=== PATIENT | female | born 1945 | race Caucasian/White ===

== ENCOUNTER 2023-09-18 07:58 | Day surgery (SDC) | payer MEDICARE, SELFPAY ==
[2022-02-01 09:02] VITALS: BP 124/48; BMI 27.1
[2023-09-14 14:12] VITALS: BMI 26.9
--- NOTE | 2023-09-15 07:59 | MHC.SHP ---
Pre-Procedural Eval Section A Date of Service: 09/15/23 The patient is an INPATIENT: No Changes since office visit: No Cold of Flu in the past 2 weeks, No New Medical Problems, No Changes in Medication and No Patient answered all questions The History & Physical has been completed within 30 days and I have reviewed it.: Yes Section B Chief Complaint: Age-related nuclear cataract, left eye Allergies: Allergies Allergy/AdvReac Type Severity Reaction Status Date / Time Penicillins Allergy Unknown Verified 09/14/23 14:04 Plan Diagnosis/Plan: Unchanged I have reviewed the history and physical and performed a pertinent physical examination on my patient. No changes have occurred unless specified. Time Spent With Patient Time: Total time managing care of this patient today ____ minutes.
--- NOTE | 2023-09-18 09:10 | HO.ANESPROP2 ---
FORMERLY [facility] Past Medical History Medical History (Updated 09/14/23 @ 12:29 by Alicia Otero, PABLITO) Cataract Osteoporosis Constipation Hx of syncope Palpitations Left bundle branch block (LBBB) Elevated cholesterol CAD (coronary artery disease) HTN (hypertension) Family History Family history of problems with anesthesia: No Surgical History Surgical History (Updated 09/14/23 @ 14:05 by Alicia Otero, RN) Hx of colonoscopy History of total abdominal hysterectomy and bilateral salpingo-oophorectomy Hx of hemorrhoidectomy History of Problems with Anesthesia: No Social History Social History (Updated 09/14/23 @ 14:04 by Alicia Otero, RN) Household Members: Spouse Housing: House Are you a primary healthcare network consultant to a significant other at home: Yes (-daughter and neighbor to assist) Do you presently have visiting nurse or other home services: No Patient Tobacco Use Status: Former Tobacco user Quit Date: Tobacco use type: Cigarette Use of substances other than those prescribed or required for medical reasons: No Have you been hit, kicked, punched, or otherwise hurt by someone within the past year? If so, by whom?: No Are you DNR?: No Advance Directives: No Advance Directives Information Provided: Yes Advance Directives on File: No Recently lost weight without trying: No Nutrition Risks: Surgical patient >75years Meds Allergies Allergy/AdvReac Type Severity Reaction Status Date / Time Penicillins Allergy Unknown Verified 09/14/23 14:04 Active Medications: Current Medications Cyclopentolate HCl (Cyclopentolate 1 % Ophth Breann 2 Ml Drpbtl) 1 drop EYE-LEFT Q5M DARION Stop: 09/18/23 09:11 Ketorolac Tromethamine (Ketorolac Tromethamine 0.5% Op 5 Ml Drops) 1 drop EYE-LEFT Q5M DARION Stop: 09/18/23 09:11 Phenylephrine HCl (Phenylephrine Hcl 2.5% Oph Breann 2 Ml Bottle) 1 drop EYE-LEFT Q5M DARION Stop: 09/18/23 09:11 Povidone Iodine (Povidone Iodine 5 % Ophth Soln 30 Ml Bottle) 1 appl EYE-LEFT PREOP PRN PRN Reason: Pre-Op Surgical Implant Prophy Tropicamide (Tropicamide 1 % Ophth Breann 3 Ml Btl) 1 drop EYE-LEFT Q5M DARION Stop: 09/18/23 09:11 Home Medications Medication Instructions Recorded Confirmed Last Taken Type amlodipine 5 mg tablet 5 mg PO DAILY 09/14/23 09/14/23 Unknown History aspirin 81 mg chewable tablet 81 mg PO DAILY 09/14/23 09/14/23 Unknown History atorvastatin 80 mg tablet 80 mg PO DAILY 09/14/23 09/14/23 Unknown History bisacodyl 5 mg tablet,delayed 10 mg PO BID 09/14/23 09/14/23 Unknown History release (Dulcolax (bisacodyl)) carvedilol 25 mg tablet 25 mg PO BID 09/14/23 09/14/23 Unknown History clopidogrel 75 mg tablet 75 mg PO DAILY 09/14/23 09/14/23 Unknown History furosemide 20 mg tablet 20 mg PO DAILY 09/14/23 09/14/23 Unknown History multivitamin 1 tab PO DAILY 09/14/23 09/14/23 Unknown History valsartan 320 mg tablet 320 mg PO DAILY 09/14/23 09/14/23 Unknown History Exam Exam Date and Time: September 18, 2023 0910 Height,Weight and Vital Signs: Height 5 ft 2.2 in Weight 67.132 kg Airway Mallampati Class: II TM Dist: >3cm Neck ROM: Full Assessment and Plan Assessment Anesthesia Assessment: Anesthesia Plan Discussed and Chart Reviewed Final Anesthetic Review Family History of Problems with Anesthesia: No History of Problems with Anesthesia: No NPO: Yes ASA Class: III Final Preanesthetic Review: No Changes in Pt Med Stat, Meds/Allgs Chart Reviewed, Consent Obtained/Reviewed and Anes Risks/Benef Reviewed Patient Risk: Intermediate Procedure Risk: Low Anesthetic Plan Anesthetic Plan: MAC: Disposition: Standard PACU
[2023-09-18 09:21] VITALS: PULSE 49; RESP 18; TEMP 36.7; O2SAT 96
[2023-09-18 09:38] VITALS: BP 159/58
[2023-09-18] MEDS: Tetracaine HCl/PF 0.5% Oph Sol 4 ML DROPS 1 DROP EYE-LEFT (09:59)
[2023-09-18] MEDS: Phenylephrine HCL 2.5% Oph SoL 2 ML BOTTLE 1 DROP EYE-LEFT ×3 (09:59→10:05)
[2023-09-18] MEDS: Ketorolac Tromethamine 0.5% Op 5 ML DROPS 1 DROP EYE-LEFT ×3 (09:59→10:05)
[2023-09-18] MEDS: Cyclopentolate 1 % Ophth Sol 2 ML DRPBTL 1 DROP EYE-LEFT ×3 (09:59→10:05)
[2023-09-18] MEDS: Tropicamide 1 % Ophth Sol 3 ML BTL 1 DROP EYE-LEFT ×3 (10:02→10:05)
[2023-09-18] MEDS: Lactated Ringers 500 ML 50 ML IV (10:06)
--- NOTE | 2023-09-18 10:11 | HO.PNOPHT ---
Ophthalmology Procedure Procedure Date of Service: 09/18/23 Ophthalmology Viscoelastic: Healon Duet Dual Pack Pro Ophthalmology Lenses: TECGINI [id number] (21) Procedure Notes: PREOPERATIVE DIAGNOSIS: Decreased visual acuity left eye secondary to cataract POSTOPERATIVE DIAGNOSIS: Same PROCEDURE: Left cataract extraction with intraocular lens insertion SURGEON: Alfredo Braun M.D. ANESTHESIA: Topical/MAC ESTIMATED BLOOD LOSS: None COMPLICATIONS: None After obtaining informed consent, the patient was brought to the operation room suite and placed in the supine position. After adequate sedation per anesthesia, topical drops of Tetracaine were given to the left eye. The eye was then prepped and draped in the usual sterile fashion. The operating room microscope was then positioned over the operative eye and a lid speculum placed. A paracentesis was created. Viscoelastic was then instilled into the anterior chamber. A three plane incision was then created temporally, utilizing a 2.85 mm keratome. Capsulotomy forceps were then utilized to create a circular tear capsulotomy. Hydrodissection and hydrodelineation were carried out until adequate mobilization of the nucleus occurred. Phacoemulsification was then utilized to remove the dense central nucleus followed by removal of the cortical material utilizing the automated aspiration irrigation unit. Viscoat elastic was instilled into the posterior capsular bag followed by placement of a posterior chamber intraocular lens without difficulty. The residual Viscoat elastic was then removed utilizing the automated IA machine. The wound was check and found to be watertight. The patient tolerated the procedure well and the lid speculum was removed. Intracameral injection of Vigamox 0.1 mL followed by a subtenon injection of Kenalog-40 0.2 mL were administered. The patient will be seen in the a.m.
[2023-09-18 10:36] VITALS: BP 147/47; PULSE 48; RESP 16; TEMP 36.6; O2SAT 95
== END 2023-09-18 10:49 | disposition home or self-care (01) ==
PROVIDERS: PCP Nurse Practitioner Family; Visit Provider Ophthalmology
PROC: (CPT 66985; principal; 2023-09-18 10:30)
DX: H25.12 Age-related nuclear cataract, left eye (principal); H52.4 Presbyopia; H18.413 Arcus senilis, bilateral; H11.153 Pinguecula, bilateral; I10 Essential (primary) hypertension; I25.2 Old myocardial infarction; I44.7 Left bundle-branch block, unspecified; E78.00 Pure hypercholesterolemia, unspecified; M81.0 Age-related osteoporosis without current pathological fracture; Z79.82 Long term (current) use of aspirin; Z79.899 Other long term (current) drug therapy; Z88.0 Allergy status to penicillin; Z87.891 Personal history of nicotine dependence
CPT/HCPCS: 66984; J2250; J3010; J3301; V2632

== ENCOUNTER 2023-09-25 07:50 | Day surgery (SDC) | payer MEDICARE, SELFPAY ==
[2022-02-01 09:02] VITALS: BP 124/48; BMI 27.1
[2023-09-14 14:16] VITALS: BMI 27.2
--- NOTE | 2023-09-22 08:31 | MHC.SHP ---
Pre-Procedural Eval Section A Date of Service: 09/22/23 The patient is an INPATIENT: No Changes since office visit: No Cold of Flu in the past 2 weeks, No New Medical Problems, No Changes in Medication and No Patient answered all questions The History & Physical has been completed within 30 days and I have reviewed it.: Yes Section B Chief Complaint: Age-related nuclear cataract, right eye Allergies: Allergies Allergy/AdvReac Type Severity Reaction Status Date / Time Penicillins Allergy Unknown Verified 09/14/23 14:04 Plan Diagnosis/Plan: Unchanged I have reviewed the history and physical and performed a pertinent physical examination on my patient. No changes have occurred unless specified. Time Spent With Patient Time: Total time managing care of this patient today ____ minutes.
--- NOTE | 2023-09-22 09:38 | P.CONAN_ITS ---
Documented by User: Lynn Keith NP 09/22/23 09:38 HPI - Anesthesia Eval Consult details Narrative: 78yo F for Right Cataract Extraction IOL Insertion Medically cleared Left eye 09/18/23: Fent 48, Midaz 0.5 PMFSH Past Medical History Medical History Cataract Osteoporosis Constipation Hx of syncope Palpitations Left bundle branch block (LBBB) Elevated cholesterol CAD (coronary artery disease) HTN (hypertension) Family History Family history of problems with anesthesia: No Surgical History Surgical History Hx of colonoscopy History of total abdominal hysterectomy and bilateral salpingo-oophorectomy Hx of hemorrhoidectomy History of Problems with Anesthesia: No Social History Social History Household Members: Spouse Housing: House Are you a primary ambulatory care nurse to a significant other at home: Yes (- daughter and neighbor to assist) Do you presently have visiting nurse or other home services: No Patient Tobacco Use Status: Former Tobacco user Quit Date: Tobacco use type: Cigarette Use of substances other than those prescribed or required for medical reasons: No Have you been hit, kicked, punched, or otherwise hurt by someone within the past year? If so, by whom?: No Are you DNR?: No Advance Directives: No Advance Directives Information Provided: Yes Advance Directives on File: No Recently lost weight without trying: No Nutrition Risks: Surgical patient >75years Meds Allergies Allergy/AdvReac Type Severity Reaction Status Date / Time Penicillins Allergy Unknown Verified 09/14/23 14:04 Home Medications Medication Instructions Recorded Confirmed Last Taken Type amlodipine 5 mg tablet 5 mg PO DAILY 09/14/23 09/14/23 09/25/23 History aspirin 81 mg chewable tablet 81 mg PO DAILY 09/14/23 09/14/23 09/24/23 History atorvastatin 80 mg tablet 80 mg PO DAILY 09/14/23 09/14/23 Unknown History bisacodyl 5 mg tablet,delayed 10 mg PO BID 09/14/23 09/14/23 Unknown History release (Dulcolax (bisacodyl)) carvedilol 25 mg tablet 25 mg PO BID 09/14/23 09/14/2309/25/23 History clopidogrel 75 mg tablet 75 mg PO DAILY 09/14/23 09/14/23 09/24/23 History furosemide 20 mg tablet 20 mg PO DAILY 09/14/23 09/14/23 Unknown History multivitamin 1 tab PO DAILY 09/14/23 09/14/23 Unknown History valsartan 320 mg tablet 320 mg PO DAILY 09/14/23 09/14/23 Unknown History Exam Exam Date and Time: September 22, 2023 0938 Height,Weight and Vital Signs: Height 5 ft 2.2 in Weight 68 kg Assessment and Plan Assessment Anesthesia Assessment: Chart Reviewed Final Anesthetic Review Family History of Problems with Anesthesia: No History of Problems with Anesthesia: No Documented by User: Raisa Shin MD 09/25/23 09:05 [facility] Past Medical History Medical History Cataract Osteoporosis Constipation Hx of syncope Palpitations Left bundle branch block (LBBB) Elevated cholesterol CAD (coronary artery disease) HTN (hypertension) Surgical History Surgical History Hx of colonoscopy History of total abdominal hysterectomy and bilateral salpingo-oophorectomy Hx of hemorrhoidectomy Social History Social History Household Members: Spouse Housing: House Are you a primary ambulatory care nurse to a significant other at home: Yes (- daughter and neighbor to assist) Do you presently have visiting nurse or other home services: No Patient Tobacco Use Status: Former Tobacco user Quit Date: Tobacco use type: Cigarette Use of substances other than those prescribed or required for medical reasons: No Have you been hit, kicked, punched, or otherwise hurt by someone within the past year? If so, by whom?: No Are you DNR?: No Advance Directives: No Advance Directives Information Provided: Yes Advance Directives on File: No Recently lost weight without trying: No Nutrition Risks: Surgical patient >75years Meds Allergies Allergy/AdvReac Type Severity Reaction Status Date / Time Penicillins Allergy Unknown Verified 09/14/23 14:04 Home Medications Medication Instructions Recorded Confirmed Last Taken Type amlodipine 5 mg tablet 5 mg PO DAILY 09/14/23 09/14/23 09/25/23 History aspirin 81 mg chewable tablet 81 mg PO DAILY 09/14/23 09/14/23 09/24/23 History atorvastatin 80 mg tablet 80 mg PO DAILY 09/14/23 09/14/23 Unknown History bisacodyl 5 mg tablet,delayed 10 mg PO BID 09/14/23 09/14/23 Unknown History release (Dulcolax (bisacodyl)) carvedilol 25 mg tablet 25 mg PO BID 09/14/23 09/14/23 09/25/23 History clopidogrel 75 mg tablet 75 mg PO DAILY 09/14/23 09/14/23 09/24/23 History furosemide 20 mg tablet 20 mg PO DAILY 09/14/23 09/14/23 Unknown History multivitamin 1 tab PO DAILY 09/14/23 09/14/23 Unknown History valsartan 320 mg tablet 320 mg PO DAILY 09/14/23 09/14/23 Unknown History Exam Airway Mallampati Class: II TM Dist: >3cm Neck ROM: Full Denture: Upper and Lower Loose/Missing/Broken Teeth: Yes, Upper and Lower Heart: RRR Lungs: CTA Assessment and Plan Assessment Anesthesia Assessment: Anesthesia Plan Discussed Final Anesthetic Review NPO: Yes ASA Class: III Final Preanesthetic Review: Meds/Allgs Chart Reviewed, Consent Obtained/Reviewed and Anes Risks/Benef Reviewed Patient Risk: Intermediate Procedure Risk: Low Anesthetic Plan Anesthetic Plan: MAC: Disposition: Standard PACU
[2023-09-25 08:43] VITALS: BP 157/42; PULSE 48; RESP 18; TEMP 36.1; O2SAT 96
[2023-09-25] MEDS: Lactated Ringers 500 ML 50 ML IV (08:45)
[2023-09-25] MEDS: Ketorolac Tromethamine 0.5% Op 5 ML DROPS 1 DROP EYE-RIGHT ×3 (08:45→08:47)
[2023-09-25] MEDS: Tropicamide 1 % Ophth Sol 3 ML BTL 1 DROP EYE-RIGHT ×3 (08:45→08:47)
[2023-09-25] MEDS: Cyclopentolate 1 % Ophth Sol 2 ML DRPBTL 1 DROP EYE-RIGHT ×3 (08:45→08:47)
[2023-09-25] MEDS: Tetracaine HCl/PF 0.5% Oph Sol 4 ML DROPS 1 DROP EYE-RIGHT (08:45)
[2023-09-25] MEDS: Phenylephrine HCL 2.5% Oph SoL 2 ML BOTTLE 1 DROP EYE-RIGHT ×3 (08:46→08:47)
--- NOTE | 2023-09-25 10:00 | HO.PNOPHT ---
Ophthalmology Procedure Procedure Date of Service: 09/25/23 Ophthalmology Viscoelastic: Kavya Irelandt Dual Pack Pro Ophthalmology Lenses: TECGINI [id number] (21) Procedure Notes: PREOPERATIVE DIAGNOSIS: Decreased visual acuity right eye secondary to cataract POSTOPERATIVE DIAGNOSIS: Same PROCEDURE: Right cataract extraction with intraocular lens insertion SURGEON: Alfredo Braun M.D. ANESTHESIA: Topical/MAC ESTIMATED BLOOD LOSS: None COMPLICATIONS: None After obtaining informed consent, the patient was brought to the operating room suite and placed in the supine position. After adequate sedation per anesthesia, topical drops of Tetracaine were given to the right eye. The eye was then prepped and draped in the usual sterile fashion. The operating room microscope was then positioned over the operative eye and a lid speculum placed. A paracentesis was created. Viscoelastic was then instilled into the anterior chamber. A three plane incision was then created temporally, utilizing a 2.85 mm keratome. Capsulotomy forceps were then utilized to create a circular tear capsulotomy. Hydrodissection and hydrodelineation were carried out until adequate mobilization of the nucleus occurred. Phacoemulsification was then utilized to remove the dense central nucleus followed by removal of the cortical material utilizing the automated aspiration irrigation unit. Viscoelastic was instilled into the posterior capsular bag followed by placement of a posterior chamber intraocular lens without difficulty. The residual Viscoelastic was then removed utilizing the automated IA machine. The wound was checked and found to be watertight. The patient tolerated the procedure well and the lid speculum was removed. Intracameral injection of Vigamox 0.1 mL followed by a subtenon injection of Kenalog-40 0.2 mL were administered. The patient will be seen in the a.m.
[2023-09-25 10:30] VITALS: BP 145/78; PULSE 54; RESP 18; TEMP 36.1; O2SAT 96
== END 2023-09-25 10:45 | disposition home or self-care (01) ==
PROVIDERS: PCP Nurse Practitioner Family; Visit Provider Ophthalmology
PROC: (CPT 66985; principal; 2023-09-25 10:00)
DX: H25.11 Age-related nuclear cataract, right eye (principal); H52.4 Presbyopia; H18.413 Arcus senilis, bilateral; H11.153 Pinguecula, bilateral; I44.7 Left bundle-branch block, unspecified; I25.2 Old myocardial infarction; I25.10 Atherosclerotic heart disease of native coronary artery without angina pectoris; I11.0 Hypertensive heart disease with heart failure; E78.00 Pure hypercholesterolemia, unspecified; M81.0 Age-related osteoporosis without current pathological fracture; Z79.82 Long term (current) use of aspirin; Z79.899 Other long term (current) drug therapy; Z88.0 Allergy status to penicillin; Z87.891 Personal history of nicotine dependence
CPT/HCPCS: 66984; J3010; J3301; V2632

== ENCOUNTER 2025-10-19 10:38 | Emergency (ER) | payer MEDICARE, SELFPAY ==
[2022-02-01 09:02] VITALS: BP 124/48; BMI 27.1
--- NOTE | ~2025-10-19 | CT_ITS ---
CLINICAL HISTORY: Fall CT cervical spine without contrast Comparison: None provided Findings: Vertebral alignment is within normal limits. Moderate degenerative changes of cervical spine. No acute fractures or dislocations. Visualized intracranial contents are unremarkable. Soft tissues of the neck are normal. Partially visualized area of ground-glass opacity in the medial left lung apex. No apical pneumothorax. IMPRESSION: No acute fracture. Partially visualized ground-glass opacity in the medial left lung apex which could represent area of infection, mass, pulmonary contusion. Consider follow-up with chest CT for further evaluation. This document has been electronically signed by: Angel Talbot MD on 10/19/2025 16:13:36
--- NOTE | ~2025-10-19 | CT_ITS ---
CLINICAL HISTORY: Fall CT head without contrast Comparison: None provided Findings: No intra-axial mass, midline shift, hydrocephalus, or acute hemorrhage. Mild cerebral atrophy. Low attenuation in the periventricular white matter consistent with chronic small-vessel ischemic gliosis. There is no sinus or mastoid fluid. The orbits are unremarkable. Right forehead scalp swelling. There is no acute fracture. IMPRESSION: 1. No acute intracranial findings. This document has been electronically signed by: Angel Talbot MD on 10/19/2025 16:16:12
--- NOTE | ~2025-10-19 | CT_ITS ---
CLINICAL HISTORY: Trauma R eye CT maxillofacial without contrast Comparison: None provided Findings: No acute fractures. Temporomandibular joints are intact. Paranasal sinuses and mastoid air cells clear. Unremarkable orbital contents. Globes are symmetric. Previous bilateral lens surgery. Visualized intracranial contents are within normal limits. No foreign bodies. IMPRESSION: Unremarkable maxillofacial CT. This document has been electronically signed by: Angel Talbot MD on 10/19/2025 16:20:25
[2025-10-19 10:45] VITALS: BP 166/72; PULSE 52; RESP 16; TEMP 36.1; O2SAT 96; BMI 27.7
--- OUTSIDE RECORDS SUMMARY | 2025-10-19 11:30 | XMS_ITS | Encounter Summary ---
Author Organization [facility], Address [address] [place] [address] Phone Care Team Providers Care Manager Nuclear Name Role Phone Chiara Rodriguez MD Primary Care Provider [phone] Encounter Details Date Type Department Care Team (Late st Contact Info) Description 01/24/2025 Documentation Only [facility], [address] [place] [address] Celestina Ruiz [address] [place] [phone] Social History Tobacco Use Types Packs/Day Years Used Date Smoking Tobacco: Former Cigarettes Smokeless Tobacco: Never Comments Unknown Sex and Gender Information Value Date Recorded Sex Assigned at Not on file Legal Sex Female 1:58 PM EST Gender Identity Not on file Sexual Orientation Not on file documented as of this encounter Plan of Treatment Not on file documented as of this encounter Visit Diagnoses Not on filedocumented in this encounter Care Teams Manager Nuclear Relationship Specialty Start Date End Date Chiara Rodriguez MD [address] [place] [address] [phone] PCP - General Director Of Student Life 12/05/24 documented as of this encounter
--- OUTSIDE RECORDS SUMMARY | 2025-10-19 11:30 | XMS_ITS | Encounter Summary ---
Author Organization [facility], Address [address] [place] [address] Phone Care Team Providers Care Human Services Professional Name Role Phone Chiara Rodriguez MD Primary Care Provider [phone] Encounter Details Date Type Department Care Team (Late st Contact Info) Description 12/20/2024 Documentation Only [facility], [address] [place] [address] Laura GuerinReynolds, [place] [address] [place] [address] Social History Tobacco Use Types Packs/Day Years Used Date Smoking Tobacco: Never Assessed Comments Unknown Sex and Gender Information Value Date Recorded Sex Assigned at Not on file Legal Sex Female 1:58 PM EST Gender Identity Not on file Sexual Orientation Not on file documented as of this encounter Plan of Treatment Not on file documented as of this encounter Visit Diagnoses Not on filedocumented in this encounter Care Teams Human Services Professional Relationship Specialty Start Date End Date Chiara Rodriguez MD [address] [place] [address] [phone] PCP - General Aircraft Inspector 12/05/24 documented as of this encounter
--- OUTSIDE RECORDS SUMMARY | 2025-10-19 11:30 | XMS_ITS | Patient Health Record ---
Author Organization [facility] Address [address] [place] [address] Care Team Providers Care Ocean Import Representative Name Role Phone Matt AYALA Hallie Primary Care Provider Unavailab winnie SalgueroRadhae Unavailable [phone] Allergies Allergen (clinical drug ingredient) Drug/Non Drug Allergy documented on EMR Reaction Allergy Type Onset Date Status Information temporarily unavailable Penicillin Unknown Drug Allergy Active Reason For Referral No Information Medications Medication SIG (Take, Route, Frequency, Duration) Notes Start Date End Date Status hydroCHLOROthiazide Active Furosemide Active Pravastatin Sodium A ctive dilTIAZem HCl ER Coated Beads Active Losartan Potassium A ctive Problems Problem Type SNOMED Code ICD Code Onset Dates Problem Status W/U Status Risk Notes Problem Information temporarily unavailable Arthralgia (719.40) Active confirmed Problem Information temporarily unavailable Arthritis - Degenerative (719.97) Active confirmed Problem Information temporarily unavailable Hammer toe (735.4) Active confirmed Problem Information temporarily unavailable 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 Problem Information temporarily unavailable Ingrowing Nail (703.0) Active confirmed Plan Of Treatment Pending Test Test Name Order Date [id number] Plate 06/22/2015 Insurance Providers Payer Name Payer Address Payer Phone Subscriber Number Group Number Insured Name Patient Relationship to Insured Coverage Start Date Coverage End Date Medicare [facility] [address] [place] [address] [phone] [id number] Symone Qureshi Self - patient is the insured [place] [address] [place] [phone] [phone] [id number] Symone Qureshi Self - patient is the insured Medical (General) History Medical History History ICD Code High blood pressure Osteoporosis
--- OUTSIDE RECORDS SUMMARY | 2025-10-19 11:30 | XMS_ITS | Encounter Summary ---
Author Organization [facility], Address [address] [place] [address] Phone Care Team Providers Care Court Abstractor Name Role Phone Chiara Rodriguez MD Primary Care Provider [phone] Encounter Details Date Type Department Care Team (Late st Contact Info) Description 01/24/2025 Documentation Only [facility], [address] [place] [address] Celestina Ruiz [address] [place] [phone] Social History Tobacco Use Types Packs/Day [...] on filedocumented in this encounter Care Teams Court Abstractor Relationship Specialty Start Date End Date Chiara Rodriguez MD [address] [place] [address] [phone] PCP - General Shrimping Boat Captain 12/05/24 documented as of this encounter
--- OUTSIDE RECORDS SUMMARY | 2025-10-19 11:30 | XMS_ITS | Clinical Summary ---
Author Organization [facility], Address [address] [place] [address] Phone Care Team Providers Care Charging Crane Operator Name Role Phone Chiara Rodriguez MD Primary Care Provider [phone] Allergies Active Allergy Reactions Criticality Noted Date Comments Penicillins 01/24/2025 Medications amLODIPine (NORVASC) 5 MG tablet Take 5 mg by mouth 1 (one) time each day Active aspirin (ST DEREK) 81 MG EC tablet Take 81 mg by mouth 1 (one) time each day Active atorvastatin (LIPITOR) 80 MG tablet Take 80 mg by mouth 1 (one) time each day Active calcium carbonate EX (TUMS EX) 750 MG chewable tablet Chew 750 mg 1 (one) time each day Active carvedilol (COREG) 25 MG tablet Take 25 mg by mouth in the morning and 25 mg in the evening. Take with meals. Active clopidogrel (PLAVIX) 75 MG tablet Take 75 mg by mouth 1 (one) time each day Active furosemide (LASIX) 20 MG tablet Take 20 mg by mouth 1 (one) time each day Active losartan-hydroC HLOROthiazide (HYZAAR) 100-25 MG per tablet Take 1 tablet by mouth 1 (one) time each day Active Multiple Vitamin (multivitamin) capsule Take 1 capsule by mouth 1 (one) time each day Active Active Problems Problem Noted Date Diagnosed Date Chronic kidney disease, stage 2 (mild) 5 Prediabetes Hypertension Hypercholesterolemia Immunizations Immunization Administration Dates Next Due Influenza Whole 09/05/2020, 8,01/06/2010,10/05/2008 ,09/20/2007 Pfizer SARS-COV-2 08/23/2021,01/20/2021,12/30/19 21 Pneumococcal Conjugate 13-Valent 04/08/2015 Pneumococcal Polysaccharide 02/02/2009 Shingrix 08/11/2024 Td, Unspecified 04/20/2006 Zoster 02/05/2014 Family History Medical History Relation Comments Heart attack Brother Heart attack Father COPD Mother Lung cancer Sister Relation Status Comments Brother Father Mother Sister Social History Tobacco Use Types Packs/Day Years Used Date Smoking Tobacco: Former Cigarettes Smokeless Tobacco: Never Comments Unknown Sex and Gender Information Value Date Recorded Sex Assigned at Not on file Legal Sex Female 1:58 PM EST Gender Identity Not on file Sexual Orientation Not on file Plan of Treatment Health Maintenance Due Date Last Done Comments Influenza Vaccine (#1) 2025 0, 08/20/2018, 01/06/2010, Additional history exists Pneumococcal Vaccine: 50+ Years Completed 04/08/2015, 02/02/2009 Hepatitis B Vaccine Aged Out No longe r eligible based on patient's age to complete this topic Insurance [facility] Care Teams Charging Crane Operator Relationship Specialty Start Date End Date Chiara Rodriguez MD [address] [place] [id number] PCP - General Career Resource Specialist 12/05/24
--- OUTSIDE RECORDS SUMMARY | 2025-10-19 11:30 | XMS_ITS | Encounter Summary ---
Author Organization [facility], Address [address] [place] [address] Phone Care Team Providers Care Break And Load Operator Name Role Phone Chiara Rodriguez MD Primary Care Provider [phone] Encounter Details Date Type Department Care Team (Late st Contact Info) Description 01/24/2025 Documentation Only [facility], [address] [place] [address] Celestina Ruiz [address] [place] [phone] Social History Tobacco Use Types Packs/Day [...] on filedocumented in this encounter Care Teams Break And Load Operator Relationship Specialty Start Date End Date Chiara Rodriguez MD [address] [place] [address] [phone] PCP - General Steel Molder 12/05/24 documented as of this encounter
--- OUTSIDE RECORDS SUMMARY | 2025-10-19 11:30 | XMS_ITS | Encounter Summary ---
Author Organization [facility], Address [address] [place] [address] Phone Care Team Providers Care Catering Sales Manager Name Role Phone Chiara Rodriguez MD Primary Care Provider [phone] Encounter Details Date Type Department Care Team (Late st Contact Info) Description 12/05/2024 Documentation Only [facility], [address] [place] [address] [place] [address] [place] [address] Social History Tobacco Use Types [...] on filedocumented in this encounter Care Teams Catering Sales Manager Relationship Specialty Start Date End Date Chiara Rodriguez MD [address] [place] [id number] PCP - General Button Attaching Machine Operator 12/05/24 documented as of this encounter
--- OUTSIDE RECORDS SUMMARY | 2025-10-19 11:30 | XMS_ITS | Encounter Summary ---
Author Organization [facility], Address [address] [place] [address] Phone Care Team Providers Care Radio Installer Automobile Name Role Phone Chiara Rodriguez MD Primary Care Provider [phone] Encounter Details Date Type Department Care Team (Late st Contact Info) Description 01/24/2025 Documentation Only [facility], [address] [place] [address] Celestina Ruiz [address] [place] [phone] Social History Tobacco Use Types Packs/Day [...] on filedocumented in this encounter Care Teams Radio Installer Automobile Relationship Specialty Start Date End Date Chiara Rodriguez MD [address] [place] [address] [phone] PCP - General Hcc Coders 12/05/24 documented as of this encounter
--- OUTSIDE RECORDS SUMMARY | 2025-10-19 11:30 | XMS_ITS | Encounter Summary ---
Author Organization [facility], Address [address] [place] [address] Phone Care Team Providers Care Pie Chef Name Role Phone Chiara Rodriguez MD Primary Care Provider [phone] Encounter Details Date Type Department Care Team (Late st Contact Info) Description 01/24/2025 Documentation Only [facility], [address] [place] [address] Celestina Ruiz [address] [place] [phone] Social History Tobacco Use Types Packs/Day [...] on filedocumented in this encounter Care Teams Pie Chef Relationship Specialty Start Date End Date Chiara Rodriguez MD [address] [place] [address] [phone] PCP - General Kennel Helper 12/05/24 documented as of this encounter
--- OUTSIDE RECORDS SUMMARY | 2025-10-19 11:30 | XMS_ITS | Encounter Summary ---
Author Organization [facility], Address [address] [place] [address] Phone Care Team Providers Care Safety Officer Name Role Phone Chiara Rodriguez MD Primary Care Provider Encounter Details Date Type Department Care Team (Late st Contact Info) Description 01/24/2025 Documentation Only [facility], [address] [place] [address] Celestina Ruiz [address] [place] [phone] Social History Tobacco Use Types Packs/Day [...] on filedocumented in this encounter Care Teams Safety Officer Relationship Specialty Start Date End Date Chiara Rodriguez MD [address] [place] [address] [phone] PCP - General Mixing Machine Tender Cork Rod 12/05/24 documented as of this encounter
[2025-10-19 12:25] LABS: MANUAL DIFF FLAG NO
[2025-10-19 12:26] LABS: Hematocrit 35.2 % (37.0-47.0); Hemoglobin 12.4 g/dl (12.0-16.0); Imm Gran Abs Auto 0.02 X10*3/uL (0.00-0.03); Imm Gran Pct Auto 0.3 % (0.0-0.4); Lymphocytes Absolute Auto 1.4 X10*3/uL (1.2-4.9); Mean Corpuscular HGB Conc 35.2 g/dl (31.0-35.0); Mean Corpuscular Hemoglobin 32.0 pg (27.0-33.0); Mean Corpuscular Volume 90.7 fL (80.0-98.0); NRBC Abs Auto 0.000 X10*3/uL (0.0-0.012); NRBC Pct Auto 0.0 /100WBC (0.0-0.2); Platelet Count 205 X10*3/uL (160-400); Red Blood Count 3.88 X10*6/uL (4.20-5.50); White Blood Count 5.9 X10*3/uL (4.8-10.8)
[2025-10-19 12:33] LABS: INTERNATIONAL NORM RATIO 0.9 (0.9-1.1); Prothrombin Time 11.4 SEC (11.2-13.5)
[2025-10-19 12:51] LABS: Anion Gap 13 (12-20); Blood Urea Nitrogen 15 mg/dL (9-16); Calcium 9.7 mg/dL (8.4-10.2); Carbon Dioxide 29 mmol/L (22-29); Chloride 105 mmol/L (96-108); Creatinine Clr Calc Pharmacy 46.2; Estimated Glomerular Filt Rate > 60; Potassium 3.1 mmol/L (3.3-5.1); Sodium 144 mmol/L (135-145)
--- NOTE | 2025-10-19 13:12 | ED.FALL ---
HPI - Fall General Chief Complaint: Fall Stated Complaint: fell Time Seen by Provider: 10/19/25 12:49 History of Present Illness ED Provider: Erin Gong NP HPI Narrative: 80-year-old female medical history significant for hypertension, hyperlipidemia, heart failure, CAD on antiplatelet therapy of Plavix, osteoporosis presents to the ER today for evaluation after a mechanical fall. She reports that she fell yesterday afternoon on her way to [employer], she was walking in her kitchen when she misstepped, and landed on the right side of her face. Reports this morning the right eye is bruised and mildly swollen, but does not have any range of motion difficulties of the eye, nor does she have pain when moving the eyeball itself. She did have a head strike, but no loss of consciousness. Reports a mild headache that is resolving with Tylenol. Denies any visual disturbances, dizziness or lightheadedness prior to or after the fall. Denies any nausea, vomiting, diarrhea or constipation, no abdominal pain. No chest pain or pressure, shortness of breath. No fever, chills, recent illnesses. Related Data Home Medications ?Medication ?Instructions ?Recorded ?Confirmed amlodipine 5 mg tablet 5 mg PO DAILY 09/14/23 09/14/23 aspirin 81 mg chewable tablet 81 mg PO DAILY 09/14/23 09/14/23 atorvastatin 80 mg tablet 80 mg PO DAILY 09/14/23 09/14/23 bisacodyl 5 mg tablet,delayed 10 mg PO BID 09/14/23 09/14/23 release (Dulcolax (bisacodyl)) carvedilol 25 mg tablet 25 mg PO BID 09/14/23 09/14/23 clopidogrel 75 mg tablet 75 mg PO DAILY 09/14/23 09/14/23 furosemide 20 mg tablet 20 mg PO DAILY 09/14/23 09/14/23 multivitamin 1 tab PO DAILY 09/14/23 09/14/23 valsartan 320 mg tablet 320 mg PO DAILY 09/14/23 09/14/23 Allergies Allergy/AdvReac Type Severity Reaction Status Date / Time Penicillins Allergy Unknown Verified 10/19/25 10:47 Review of Systems Review of Systems: ROS is otherwise negative unless mentioned in HPI. [facility] Past Medical History Medical History Cataract Osteoporosis Constipation Hx of syncope Palpitations Left bundle branch block (LBBB) Elevated cholesterol CAD (coronary artery disease) HTN (hypertension) Surgical History Hx of colonoscopy History of total abdominal hysterectomy and bilateral salpingo-oophorectomy Hx of hemorrhoidectomy Social History Social History Household Members: Spouse Housing: House Are you a primary tree care foreman to a significant other at home: Yes (-daughter and neighbor to assist) Do you presently have visiting nurse or other home services: No Patient Tobacco Use Status: Former Tobacco user Tobacco use type: Cigarette Advance Directives: No Advance Directives Information Provided: No Physical Exam Exam: Exam: Nursing notes and vital signs reviewed. Constitutional: Well-appearing, NAD. Alert. Oriented X3. Eyes: Pupils equal, round and reactive to light. EOMI. Surrounding right orbit with purple ecchymosis. ENT: Pharynx normal. Neck: Normal inspection. Neck supple. No midline c-spine tenderness, normal ROM. CVS: Normal heart rate and rhythm. Pulses normal. Respiratory: No respiratory distress. Breath sounds normal. Abdomen: Soft and nontender, nondistended. Skin: Skin warm and dry. Normal skin color. Purple ecchymosis surrounding right orbit. Extremities: No lower extremity edema. Neuro: Oriented X 3. No motor deficit. Vital Signs: Vital Signs: Last Vital Signs Temp 97.1 F 10/19/25 14:11 Pulse 43 L 10/19/25 14:11 Resp 18 10/19/25 14:11 BP 142/64 H 10/19/25 14:11 Pulse Ox 94 10/19/25 14:11 O2 Del Method Room Air 10/19/25 14:11 BMI result Body Mass Index 27.7 Medications Administered Discontinued Medications Generic Name Dose Route Start Last Admin Trade Name Freq PRN Reason Stop Dose Admin Acetaminophen 975 mg 10/19/25 13:14 10/19/25 13:31 Acetaminophen 325 Mg Tablet PO 10/19/25 13:15 975 mg ONCE ONE Administration Potassium Chloride 40 meq 10/19/25 13:14 10/19/25 13:31 Potassium Chloride Er 20 Meq Tab.Er.Prt PO 10/19/25 13:15 40 meq ONCE ONE Administration Medical Decision Making Medical Decision Making [facility] Narrative: Well-appearing female, NAD, answering all questions appropriately. She does have dark purple discoloration surrounding the right eye, though no supplement or double hemorrhage is noted. Range of motion of the eye is intact, and patient denies it is painful. Possibly underlying orbital fracture, we will obtain CT imaging of the facial bones, head, neck. She has no midline C-spine tenderness on exam. Low clinical suspicion for skull fracture, less likely intracranial hemorrhage. However she is on Plavix for CAD. Her potassium via lab work was noted to be mildly low at 3.1, we will replete this orally with pills. We will administer a dose of Tylenol for her discomfort and reassess after imaging. 1625--CT of the head, maxillofacial bones are reassuring with the no acute fractures identified. The CT of the C-spine does show concern for a partially visualized ground-glass opacity in the medial left lung apex, the patient has no complaints of shortness of breath, she is not hypoxic, and does not want to wait in the ED any longer or have additional imaging performed. I have low clinical suspicion for trauma given she did not fall or land on that area, and no chest trauma occurred. I do recommend that she sees her primary care provider in the next several days and has repeat imaging performed. She is agreeable with this plan. Provided return precautions to the ED, patient expressed understanding. Differential Diagnosis Differential Diagnoses: The differential diagnosis associated with the presentation includes Facial fracture, entrapment of the eye, intracranial hemorrhage or skull fracture. Admission/Observation Consideration of admission/observation: Escalation of care including admission/observation considered (Not indicated at this time.) Lab Data [facility] Lab Attestation statement: I reviewed the patient's lab results. (Reassuring, mildly low potassium level.) 10/19/25 12:18 10/19/25 12:18 Labs: Lab Results 10/19/25 Range/Units 12:18 WBC 5.9 (4.8-10.8) X10*3/uL RBC 3.88 L (4.20-5.50) X10*6/uL Hgb 12.4 (12.0-16.0) g/dl Hct 35.2 L (37.0-47.0) % MCV 90.7 (80.0-98.0) fL MCH 32.0 (27.0-33.0) pg MCHC 35.2 H (31.0-35.0) g/dl RDW 13.1 (11.0-16.0) % Plt Count 205 (160-400) X10*3/uL MPV 10.2 (9.4-12.3) fL Immature Gran % (Auto) 0.3 (0.0-0.4) % Neut % (Auto) 61.0 (45-73) % Lymph % (Auto) 24.3 (20-40) % [place] % (Auto) 11.0 (2-11) % Eos % (Auto) 2.7 (0-4) % Baso % (Auto) 0.7 (0-2) % Lymph # (Auto) 1.4 (1.2-4.9) X10*3/uL [place] # (Auto) 0.7 (0.1-1.2) X10*3/uL Eos # (Auto) 0.2 (0.0-0.4) X10*3/uL Baso # (Auto) 0.0 (0.0-0.2) X10*3/uL Abs Immat Gran (auto) 0.02 (0.00-0.03) X10*3/uL Absolute Neuts (auto) 3.6 (2.0-8.3) x10*3/uL Absolute Nucleated RBC 0.000 (0.0-0.012) X10*3/uL Nucleated RBC % (auto) 0.0 (0.0-0.2) /100WBC PT 11.4 (11.2-13.5) SEC INR 0.9 (0.9-1.1) Sodium 144 (135-145) mmol/L Potassium 3.1 L (3.3-5.1) mmol/L Chloride 105 (96-108) mmol/L Carbon Dioxide 29 (22-29) mmol/L Anion Gap 13 (12-20) BUN 15 (9-16) mg/dL Creatinine 0.82 (0.5-1.4) mg/dL Estim Creat Clear Calc 46.2 Estimated GFR > 60 Random Glucose 85 (60-115) mg/dL Calcium 9.7 (8.4-10.2) mg/dL Independent Interpretation I performed an independent interpretation of an: CT Scan Interpretation: I have reviewed the patient's imaging and agree with the radiologist's findings. Radiology Impression Discussion of test interpretation with radiology: I have reviewed the radiologist's reading. Radiologist Impression: CT Face WO IMPRESSION: Unremarkable maxillofacial CT. CT Head WO IMPRESSION: 1. No acute intracranial findings. CT C-Spine WO IMPRESSION: No acute fracture. Partially visualized ground-glass opacity in the medial left lung apex which could represent area of infection, mass, pulmonary contusion. Consider follow-up with chest CT for further evaluation. Independent Historian None External Record Review External record reviewed: Office record and Other (medication list) Chronic Conditions Patient?s care impacted by: Hypertension and Other (CAD) Social Determinants Patient?s care significantly limited by Social Determinants of Health including: Problems related to primary support group Discharge Plan Discharge Clinical Impression: Fall Qualifiers: Encounter type: initial encounter Qualified Code(s): W19.XXXA - Unspecified fall, initial encounter Black eye of right side Qualifiers: Encounter type: initial encounter Qualified Code(s): S00.11XA - Contusion of right eyelid and periocular area, initial encounter Patient Disposition: Home, Self-Care Instructions: Black Eye (ED), Fall Prevention for Older Adults (ED) Additional Instructions: As we discussed, the CT scanning of your facial bones, and of your head, neck showed no acute abnormality. The CT of your neck to partially visualize your upper lungs, where there was a noted partially visualized ground-glass opacity in the medial left lung apex , and therefore we would like for you to have close follow up with your primary care provider outpatient, as you are eager to leave the hospital today. If you develop any shortness of breath, chest pain, it is very important that you return back to the ED for reassessment. Otherwise, please have repeat imaging performed outpatient if needed.With any worsening complaints, return back to the ED for reassessment. Prescriptions: No Action atorvastatin 80 mg tablet 80 mg PO DAILY carvedilol 25 mg tablet 25 mg PO BID amlodipine 5 mg tablet 5 mg PO DAILY valsartan 320 mg tablet 320 mg PO DAILY aspirin 81 mg Tablet,Chewable 81 mg PO DAILY furosemide 20 mg tablet 20 mg PO DAILY multivitamin Tablet 1 tab PO DAILY clopidogrel 75 mg Tablet 75 mg PO DAILY bisacodyl [Dulcolax (bisacodyl)] 5 mg Tablet,Delayed Release (/Ec) 10 mg PO BID Referrals: [facility] Family Medicine [Provider Group, Family Practice] Print Language: Albanian
[2025-10-19] MEDS: Potassium Chloride ER 20 MEQ TAB.ER.PRT 40 MEQ PO (13:31)
[2025-10-19 14:11] VITALS: BP 142/64; PULSE 43; RESP 18; TEMP 36.2; O2SAT 94
[2025-10-19 16:45] VITALS: BP 142/64; PULSE 43; RESP 18; TEMP 36.2; O2SAT 94
== END 2025-10-19 16:47 | disposition home or self-care (01) ==
PROVIDERS: Emergency Provider Emergency Medicine Emergency Medical Services
DX: S00.11XA Contusion of right eyelid and periocular area, initial encounter (principal); I10 Essential (primary) hypertension; I25.10 Atherosclerotic heart disease of native coronary artery without angina pectoris; Z79.02 Long term (current) use of antithrombotics/antiplatelets; W18.30XA Fall on same level, unspecified, initial encounter; Y93.01 Activity, walking, marching and hiking; Y92.000 Kitchen of unspecified non-institutional (private) residence as the place of occurrence of the external cause; Y99.9 Unspecified external cause status; Z88.0 Allergy status to penicillin
CPT/HCPCS: 36415; 70450; 70486; 72125; 80048; 85025; 85610; 99283; 99284

== ENCOUNTER → 2025-10-19 13:13 | Outpatient (BNV) | payer MEDICARE, SELFPAY ==
[2022-02-01 09:02] VITALS: BP 124/48; BMI 27.1
== END ==
PROVIDERS: Emergency Provider Emergency Medicine Emergency Medical Services; Visit Provider Radiology Diagnostic Radiology
DX: Z04.3 Encounter for examination and observation following other accident (principal); S05.91XA Unspecified injury of right eye and orbit, initial encounter
CPT/HCPCS: 70450; 70486; 72125